=== PATIENT | female | born 1935 | race Caucasian/White ===

== ENCOUNTER 2017-03-17 17:14 | Observation (INO) | payer OTHER ==
[~2017-03-17] VITALS: Ht 157.5 cm; Wt 43.8 kg
[2017-03-17 19:03] LABS: HEMATOCRIT 28.2 % (36.0-46.0); MCH 24.6 PG (29.0-34.0); MCHC 31.2 G/DL (30.0-36.0); MEAN PLAT.VOLUME 10.4 uM^3 (9.5-12.4); PLATELET COUNT 231 K/uL (156-360); RBC DIS.WIDTH-CV 17.2 % (11.8-14.6); RBC DIS.WIDTH-SD 50.1 % (39-53); RED BLOOD COUNT 3.57 M/uL (3.80-5.20); WHITE BLOOD COUNT 8.1 K/uL (4.1-10.2)
[2017-03-17 19:09] LABS: PROTHROMBIN TIME 11.4 SEC (10.2-12.9)
[2017-03-17 19:12] LABS: PTT 28.2 SEC (25-37)
[2017-03-17 19:15] LABS: CHLORIDE 101 mEq/L (99-109); POTASSIUM 4.7 mEq/L (3.7-5.4); SODIUM 137 mEq/L (136-147)
[2017-03-17 19:17] LABS: GLUCOSE 103 mg/dL (70-99)
[2017-03-17 19:19] LABS: ANION GAP 9 MEQ/L (2-14)
[2017-03-17 19:21] LABS: GFR ESTIMATE (CALCULATED) > 59 mL/min/
[2017-03-17 19:22] LABS: UREA NITROGEN (BUN) 26 mg/dL (9-23)
[2017-03-17 20:57] LABS: ADD MIUA? YES; BILIRUBIN NEGATIVE; BLOOD NEGATIVE; COLOR YELLOW ((YELLOW)); GLUCOSE (STRIP) NEGATIVE; KETONES NEGATIVE; LEUKOCYTES SMALL; NITRITE POSITIVE; PROTEIN (STRIP) NEGATIVE; SPECIFIC GRAVITY 1.011 (1.000-1.030); UROBILINOGEN 0.2 MG/DL (0.2-1.0)
[2017-03-17 21:13] LABS: BACTERIA RARE /HPF; EPITHELIAL CELLS RARE /HPF; MUCUS TRACE /LPF; RED BLOOD CELLS 0-5 /HPF (0-5)
[2017-03-17] MEDS ORDERED: ARICEPT5 MG PO (22:03)
[2017-03-17] MEDS ORDERED: ULTRAM50 MG PO (22:03)
[2017-03-17] MEDS ORDERED: MYRBETRIQ25 MG PO (22:03)
[2017-03-17] MEDS ORDERED: SYNTHROID125 MCG PO (22:03)
[2017-03-17] MEDS ORDERED: DIGOXIN125 MCG PO (22:03)
[2017-03-17] MEDS ORDERED: ALEVE220 MG PO (22:04)
[2017-03-17] MEDS ORDERED: CYMBALTA30 MG PO (22:04)
[2017-03-17] MEDS ORDERED: CENTRUM SILVER1 EAC3 PO (22:04)
[2017-03-17] MEDS ORDERED: LIPITOR20 MG PO (22:04)
[2017-03-17] MEDS ORDERED: CYMBALTA60 MG PO (22:04)
[2017-03-17] MEDS ORDERED: SEROQUEL12.5 MG PO (22:04)
[2017-03-17] MEDS ORDERED: MIRTAZAPINE45 MG PO (22:04)
[2017-03-17 23:46] VITALS: BP 125/58
[2017-03-18 05:28] LABS: HEMATOCRIT 28.1 % (36.0-46.0); MCH 23.9 PG (29.0-34.0); MCHC 30.2 G/DL (30.0-36.0); MCV 78.9 FL (83-99); MEAN PLAT.VOLUME 11.2 uM^3 (9.5-12.4); PLATELET COUNT 220 K/uL (156-360); RBC DIS.WIDTH-CV 17.3 % (11.8-14.6); RBC DIS.WIDTH-SD 50.1 % (39-53); RED BLOOD COUNT 3.56 M/uL (3.80-5.20); WHITE BLOOD COUNT 6.2 K/uL (4.1-10.2)
[2017-03-18 06:01] LABS: ANION GAP 8 MEQ/L (2-14); CHLORIDE 103 MEQ/L (99-109); GFR ESTIMATE (CALCULATED) > 59 mL/min/; GLUCOSE 98 mg/dL (70-99); POTASSIUM 4.4 MEQ/L (3.7-5.4); SAMPLE HEMOLYSIS CHECK 0; SAMPLE ICTERIC CHECK 0; SAMPLE LIPEMIA CHECK 0; SODIUM 140 MEQ/L (136-147); UREA NITROGEN (BUN) 24 mg/dL (9-23)
[2017-03-18 08:05] LABS: FERRITIN 20 NG/ML (10-291)
[2017-03-18 08:28] VITALS: BP 111/56
[2017-03-18 08:38] LABS: IRON 50 MCG/DL (35-150)
[2017-03-18 11:15] VITALS: BP 135/60
[2017-03-18 15:12] VITALS: BP 130/62
[2017-03-18 19:45] VITALS: BP 111/56
[2017-03-19] VITALS: BP 120/58
[2017-03-19 04:00] VITALS: BP 112/59
[2017-03-19 05:28] LABS: HEMATOCRIT 28.9 % (36.0-46.0); MCH 24.2 PG (29.0-34.0); MCHC 30.4 G/DL (30.0-36.0); MCV 79.4 FL (83-99); MEAN PLAT.VOLUME 11.4 uM^3 (9.5-12.4); PLATELET COUNT 211 K/uL (156-360); RBC DIS.WIDTH-CV 16.9 % (11.8-14.6); RED BLOOD COUNT 3.64 M/uL (3.80-5.20); WHITE BLOOD COUNT 5.4 K/uL (4.1-10.2)
[2017-03-19 05:57] LABS: ANION GAP 5 MEQ/L (2-14); CHLORIDE 101 MEQ/L (99-109); GFR ESTIMATE (CALCULATED) 56 mL/min/; GLUCOSE 108 mg/dL (70-99); POTASSIUM 4.7 MEQ/L (3.7-5.4); SAMPLE HEMOLYSIS CHECK 0; SAMPLE ICTERIC CHECK 0; SAMPLE LIPEMIA CHECK 0; SODIUM 138 MEQ/L (136-147); UREA NITROGEN (BUN) 20 mg/dL (9-23)
[2017-03-19 08:30] VITALS: BP 115/70
[2017-03-19] MEDS ORDERED: LEVOTHYROXINE75 MCG PO (11:42)
[2017-03-19 13:06] VITALS: BP 116/70
[2017-03-19 19:30] VITALS: BP 120/56
[2017-03-20] VITALS: BP 124/61
[2017-03-20 04:00] VITALS: BP 120/60
[2017-03-20 07:27] VITALS: BP 113/54
[2017-03-20 09:22] LABS: HEMATOCRIT 32.4 % (36.0-46.0); MCHC 30.9 G/DL (30.0-36.0); MEAN PLAT.VOLUME 11.8 uM^3 (9.5-12.4); PLATELET COUNT 229 K/uL (156-360); RBC DIS.WIDTH-CV 17.1 % (11.8-14.6); RBC DIS.WIDTH-SD 50.4 % (39-53); WHITE BLOOD COUNT 5.6 K/uL (4.1-10.2)
[2017-03-20 09:48] LABS: ANION GAP 7 MEQ/L (2-14); CHLORIDE 104 MEQ/L (99-109); GFR ESTIMATE (CALCULATED) 56 mL/min/; GLUCOSE 103 mg/dL (70-99); POTASSIUM 4.7 MEQ/L (3.7-5.4); SAMPLE HEMOLYSIS CHECK 0; SAMPLE ICTERIC CHECK 0; SAMPLE LIPEMIA CHECK 0; SODIUM 141 MEQ/L (136-147); UREA NITROGEN (BUN) 18 mg/dL (9-23)
[2017-03-20 11:45] VITALS: BP 116/57
[2017-03-20] MEDS ORDERED: IRON325 M1 PO (15:25)
[2017-03-20 15:52] VITALS: BP 116/57
== END 2017-03-20 17:13 ==
LOC: EME 17:14 → EDOF 22:36 → 5WEST 22:36 → EDOF 22:36 → ENRESERV 22:38 → 5WEST 23:27
PROVIDERS: Internal Medicine; Nurse Practitioner Adult Health; Nurse Practitioner Family
DX: D50.9 Iron deficiency anemia, unspecified (principal); F32.9 Major depressive disorder, single episode, unspecified; R45.851 Suicidal ideations; I48.0 Paroxysmal atrial fibrillation; I05.0 Rheumatic mitral stenosis; Z95.2 Presence of prosthetic heart valve; I45.10 Unspecified right bundle-branch block; E03.9 Hypothyroidism, unspecified; E78.5 Hyperlipidemia, unspecified; Z79.01 Long term (current) use of anticoagulants; Z79.82 Long term (current) use of aspirin; N39.0 Urinary tract infection, site not specified; I10 Essential (primary) hypertension; R64 Cachexia; Z68.1 Body mass index [BMI] 19.9 or less, adult; Z91.81 History of falling; Z88.5 Allergy status to narcotic agent
CPT/HCPCS: 71020; 80048; 81003; 82272; 82607; 82728; 83540; 83880; 84443; 84466; 85027; 85610; 85730; 86850; 86900; 86901; 87077; 87086; 87186; 93005; 99281; 99285; G0378; J0696; J7040